=== PATIENT | male | born 1955 | race Caucasian/White ===

== ENCOUNTER 2017-08-19 21:33 | Observation (INO) | payer OTHER ==
[~2017-08-19] VITALS: Ht 190.5 cm; Wt 146.5 kg
[2017-08-19] MEDS ORDERED: ONDANSETRON HCL 4 MG/2 ML VIAL ONE (21:40)
[2017-08-19 22:04] LABS: CREATININE 1.9 mg/dL (0.5-1.5)
[2017-08-19 22:08] LABS: ALBUMIN 3.3 g/dL (3.5-5.0); BILIRUBIN,TOTAL 0.4 mg/dL (0.2-1.0); TOTAL PROTEIN, SERUM 6.7 g/dL (6.0-8.3)
[2017-08-19] MEDS ORDERED: TETANUS/DIPHTHERIA TOXOID [ADULT] 0.5 ML VIAL IM ONE (22:40)
[2017-08-19 22:52] LABS: BASOPHILS % (AUTO) 0.3 % (0.0-5.0); HEMATOCRIT 49.1 % (42-54); LYMPHOCYTES % (AUTO) 17.5 % (21.0-51.0); MEAN CORPUSCULAR HEMOGLOBIN 29.8 pg (27.0-33.0); MEAN CORPUSCULAR HGB CONC 33.2 g/dL (32.0-36.0); MEAN CORPUSCULAR VOLUME 89.7 fL (79-99); MONOCYTES % (AUTO) 2.8 % (3.0-13.0); NEUTROPHILS % (AUTO) 78.4 % (40.0-77.0); NUCLEATED RED BLOOD CELLS 0.1 % (0.0-0.19); PLATELET COUNT (AUTO) 162 K/uL (130-400); RED BLOOD CELL COUNT(AUTO) 5.47 MIL/uL (4.50-6.20); RED CELL DISTRIBUTION WIDTH 14.1 % (11.0-15.5); WHITE BLOOD COUNT (AUTO) 14.7 K/uL (4.8-10.8)
[2017-08-19 23:00] LABS: INR 1.23 (0.85-1.15); PARTIAL THROMBOPLASTIN TIME 26.5 SEC (26.3-35.5); PROTHROMBIN TIME 12.9 SEC (9.6-11.6)
[2017-08-19] MEDS ORDERED: POTASSIUM BICARB/CIT AC 25 MEQ TABLET.EFF ONE (23:13)
[2017-08-19] MEDS ORDERED: SODIUM CHLORIDE 0.9% 1000ML 1,000 ML IV ONE (23:14)
[2017-08-19] MEDS ORDERED: DiphenhydrAMINE HCL 50 MG/ML VIAL ONE (23:14)
[2017-08-19] MEDS ORDERED: FAMOTIDINE/PF 20 MG/2 ML VIAL IV ONE (23:15)
[2017-08-19] MEDS ORDERED: METHYLPREDNISOLONE SOD SUCC 125MG/2ML VIAL ONE (23:15)
[2017-08-20] MEDS ORDERED: ONDANSETRON HCL 4 MG/2 ML VIAL ONE ×2 (00:12→01:43)
[2017-08-20] MEDS ORDERED: MORPHINE SULFATE 2 MG/ML 1ML SYG ONE ×2 (00:13→01:43)
[2017-08-20 02:40] VITALS: BP 138/88
[2017-08-20] MEDS ORDERED: LIDOCAINE HCL-MPF 1% 2ML VIAL IVP PRN ×2 (03:00)
[2017-08-20] MEDS ORDERED: POTASSIUM CHLORIDE 20MEQ/100ML 100 ML IV PRN ×2 (03:00)
[2017-08-20] MEDS ORDERED: POTASSIUM CHLORIDE 10% ELIXIR 20 MEQ/15 ML UDCUP PO PRN ×2 (03:00)
[2017-08-20] MEDS ORDERED: POTASSIUM CHLORIDE 20 MEQ ERTAB PO PRN ×2 (03:00)
[2017-08-20] MEDS ORDERED: METO-391 PO (03:26)
[2017-08-20] MEDS ORDERED: ALLO300T2 PO (03:26)
[2017-08-20] MEDS ORDERED: LOSA1TAB54 PO (03:26)
[2017-08-20] MEDS ORDERED: AMLO10TA2 PO (03:26)
[2017-08-20] MEDS ORDERED: FLEC100T3 PO (03:26)
[2017-08-20] MEDS ORDERED: RIVA20TA PO (03:26)
[2017-08-20 05:08] LABS: HEMATOCRIT 46.9 % (42-54); MEAN CORPUSCULAR HEMOGLOBIN 29.9 pg (27.0-33.0); MEAN CORPUSCULAR HGB CONC 33.4 g/dL (32.0-36.0); MEAN CORPUSCULAR VOLUME 89.4 fL (79-99); PLATELET COUNT (AUTO) 184 K/uL (130-400); RED BLOOD CELL COUNT(AUTO) 5.25 MIL/uL (4.50-6.20); RED CELL DISTRIBUTION WIDTH 13.9 % (11.0-15.5)
[2017-08-20 05:16] LABS: CREATININE 1.6 mg/dL (0.5-1.5); POTASSIUM 4.6 mmol/L (3.5-5.1)
[2017-08-20] MEDS ORDERED: PHENYLEPHRINE HCL 10 MG in SODIUM CHLORIDE 0.9% 250 ML IV SCH (05:45)
[2017-08-20] MEDS ORDERED: ONDANSETRON HCL 4 MG/2 ML VIAL IVP PRN (05:45)
[2017-08-20] MEDS ORDERED: ACETAMINOPHEN 325 MG TAB PO PRN (05:45)
[2017-08-20 08:07] VITALS: BP 113/73
[2017-08-20] MEDS: FAMOTIDINE 20MG TAB 20 MG TAB PO SCH ×2 (08:40→21:34)
[2017-08-20] MEDS: MORPHINE SULFATE 4 MG/1ML SYG IVP PRN ×3 (08:40→22:43)
[2017-08-20] MEDS: SODIUM CHLORIDE 0.9% 1000ML 1,000 ML IV SCH ×2 (08:51→16:08)
[2017-08-20] MEDS: FLECAINIDE ACETATE 100 MG TABLET PO SCH ×2 (09:00→21:34)
[2017-08-20] MEDS: ALLOPURINOL 300 MG TABLET PO SCH (09:00)
[2017-08-20] MEDS ORDERED: ENOXAPARIN SODIUM 40 MG/0.4 ML SYRINGE SQ SCH (09:00)
[2017-08-20] MEDS: METHYLPREDNISOLONE SOD SUCC 125MG/2ML VIAL IVP SCH ×2 (09:23→16:08)
[2017-08-20 12:28] VITALS: BP 114/77
[2017-08-20 16:00] VITALS: BP 136/88
[2017-08-20 19:57] VITALS: BP 126/66
[2017-08-20 23:28] VITALS: BP 122/65
[2017-08-21] MEDS: METHYLPREDNISOLONE SOD SUCC 125MG/2ML VIAL IVP SCH ×2 (02:15→10:31)
[2017-08-21 04:00] VITALS: BP 134/88
[2017-08-21 04:19] LABS: BASOPHILS % (AUTO) 0.5 % (0.0-5.0); LYMPHOCYTES % (AUTO) 8.7 % (21.0-51.0); MEAN CORPUSCULAR HEMOGLOBIN 30.1 pg (27.0-33.0); MEAN CORPUSCULAR HGB CONC 33.7 g/dL (32.0-36.0); MEAN CORPUSCULAR VOLUME 89.5 fL (79-99); MONOCYTES % (AUTO) 2.8 % (3.0-13.0); PLATELET COUNT (AUTO) 167 K/uL (130-400); RED BLOOD CELL COUNT(AUTO) 4.58 MIL/uL (4.50-6.20); WHITE BLOOD COUNT (AUTO) 14.5 K/uL (4.8-10.8)
[2017-08-21 04:32] LABS: ALBUMIN 3.1 g/dL (3.5-5.0); BILIRUBIN,TOTAL 0.5 mg/dL (0.2-1.0); CREATININE 1.2 mg/dL (0.5-1.5); POTASSIUM 4.2 mmol/L (3.5-5.1); TOTAL PROTEIN, SERUM 6.3 g/dL (6.0-8.3)
[2017-08-21] MEDS: SODIUM CHLORIDE 0.9% 1000ML 1,000 ML IV SCH (05:23)
[2017-08-21 08:01] VITALS: BP 113/70
[2017-08-21] MEDS: FAMOTIDINE 20MG TAB 20 MG TAB PO SCH (09:00)
[2017-08-21] MEDS: FLECAINIDE ACETATE 100 MG TABLET PO SCH ×2 (09:00→10:31)
[2017-08-21] MEDS: RIVAROXABAN 20 MG TABLET PO SCH ×2 (09:00→10:31)
[2017-08-21] MEDS: ALLOPURINOL 300 MG TABLET PO SCH ×2 (09:00→10:31)
[2017-08-21] MEDS ORDERED: PRED20TA3 PO (10:37)
[2017-08-21] MEDS ORDERED: DIPH25 PO (10:37)
== END 2017-08-21 12:50 | disposition home or self-care (01) ==
LOC: EDH 21:33 → EDHIP 21:34 → 2AH 08-20 02:52
PROVIDERS: ADMIT Internal Medicine Nephrology; ATTEND Internal Medicine Nephrology
DX: T78.2XXA Anaphylactic shock, unspecified, initial encounter (principal); S01.111A Laceration without foreign body of right eyelid and periocular area, initial encounter; R42 Dizziness and giddiness; T63.441A Toxic effect of venom of bees, accidental (unintentional), initial encounter; I10 Essential (primary) hypertension; I25.10 Atherosclerotic heart disease of native coronary artery without angina pectoris; I48.91 Unspecified atrial fibrillation; J45.909 Unspecified asthma, uncomplicated; N28.9 Disorder of kidney and ureter, unspecified; W01.0XXA Fall on same level from slipping, tripping and stumbling without subsequent striking against object, initial encounter; Y92.89 Other specified places as the place of occurrence of the external cause; Y99.8 Other external cause status; Z80.8 Family history of malignant neoplasm of other organs or systems; Z79.01 Long term (current) use of anticoagulants
CPT/HCPCS: 12013; 36415 ×3; 70450; 70486; 72100; 80048; 80053 ×2; 84484; 85025 ×2; 85027; 85610; 85730; 90471; 90714; 93005; 96361 ×2; 96374; 96375; 96376 ×2; 99285; G0378 ×39; J1200; J1650; J2270 ×3; J2405 ×3; J2930 ×5; J3490; J7030 ×3